=== PATIENT | female | born 1950 | race Caucasian/White ===

== ENCOUNTER 2018-04-20 07:54 | Outpatient (CLI) | payer BC | END 2018-04-20 07:55 | disposition home or self-care (01) | LOC: BICMAMMO 07:54 | PROVIDERS: ATTEND Internal Medicine | DX: Z12.31 Encounter for screening mammogram for malignant neoplasm of breast (principal); Z80.3 Family history of malignant neoplasm of breast | CPT/HCPCS: 77063; 77067 ==

== ENCOUNTER 2018-05-06 09:34 | Outpatient (CLI) | payer BC ==
[2018-05-06 10:52] LABS: #Eosinphils 0.2 thou/uL (0.0-0.7); #Lymphocytes 1.7 thou/uL (1.20-3.40); #Monocytes 0.5 thou/uL (0.11-0.59); #Neutrophils 3.5 thou/uL (1.40-6.50); %Basophils 0.8 % (0.0-1.0); %Eosinophils 2.6 % (0.0-10.0); %Lymphocytes 28.8 % (21.0-51.0); %Monocytes 9.1 % (0.0-10.0); %Neutrophils 58.7 % (42.0-75.0); Hemoglobin 13.9 g/dL (12.0-16.0); Mean Corpuscular HGB CONC 33.2 g/dL (32.0-36.0); Mean Corpuscular Hemoglobin 29.8 pg (27.0-31.0); Mean Corpuscular Volume 89.7 fL (78.0-98.0); Mean Platelet Volume 7.1 fL (7.4-10.4); Platelet Count 217 thou/uL (130-400); RBC Distribution Width 12.3 % (11.5-14.5); Red Blood Cell (RBC) Count 4.66 mill/uL (4.20-5.40); White Blood Cell (WBC) Count 5.9 thou/uL (4.8-10.8)
[2018-05-06 11:09] LABS: Anion Gap 14 mmol/L (10-20); BUN (Urea Nitrogen) 12 mg/dL (9.8-20.1); Calc. Creatinine Clearance 0 mL/min (70-130); Calcium 9.6 mg/dL (7.8-10.44); Carbon Dioxide 23 mmol/L (23-31); Chloride 103 mmol/L (98-107); Estimated GFR-MDRD 54; Glucose 349 mg/dL (80-115); Potassium 3.7 mmol/L (3.5-5.1); Sodium 136 mmol/L (136-145)
--- NOTE | 2018-05-07 13:57 | EKG ---
Test Reason : Blood Pressure : / mmHG Vent. Rate : 106 BPM Atrial Rate : 106 BPM P-R Int : 134 ms QRS Dur : 082 ms QT Int : 356 ms P-R-T Axes : 056 014 043 degrees QTc Int : 472 ms Sinus tachycardia Low voltage QRS Cannot rule out Anterior infarct (cited on or before 17-SEP-2010) Abnormal ECG Confirmed by BECCA BARNEY ([id number]) on 05/07/2018 1:56:57 PM Referred By: BHARAT Confirmed By:BECCA BARNEY
== END 2018-05-06 09:35 | disposition home or self-care (01) ==
LOC: LABBT 09:34
PROVIDERS: ATTEND Surgery
DX: Z01.818 Encounter for other preprocedural examination (principal); K43.2 Incisional hernia without obstruction or gangrene
CPT/HCPCS: 80048; 85025; 93005; 93010

== ENCOUNTER 2018-05-13 09:58 | Day surgery (SDC) | payer BC ==
[2018-05-06 09:49] VITALS: BMI 29.7
[2018-05-13] MEDS ORDERED: Bupivacaine/Epinephrine 0.25% 30 ML VIAL ONE (11:41)
[2018-05-13] MEDS ORDERED: Fentanyl 100 MCG/2 ML VIAL ONE ×3 (11:57→14:33)
[2018-05-13] MEDS ORDERED: Levofloxacin 500 mg/D5W 100 ml Premix Bag ONE (12:01)
--- NOTE | 2018-05-13 14:06 | OP ---
DATE OF PROCEDURE: 05/13/2018 PREOPERATIVE DIAGNOSIS: Incisional hernia. POSTOPERATIVE DIAGNOSES: Incisional hernia. PROCEDURE PERFORMED: Laparoscopic da Mariama robot incisional hernia repair with mesh, [address] SURGEON: Bhanu Goldstein M.D. ANESTHESIA: General. ESTIMATED BLOOD LOSS: Minimal. COMPLICATIONS: None. SPECIMEN: None. FINDINGS: Incisional hernia. TECHNIQUE: The patient was taken to the operating room and placed supine on the table. After genera l anesthetic was obtained, Hartley was placed. The abdomen was prepped and draped in a sterile fashion . Left subcostal Optiview 5 mm port was placed in the usual fashion without injury. High-flow pneum operitoneum was obtained. Left and right abdominal 8 mm robot trocars were placed. The 5 mm port wa s switched out to an 11 mm balloon applied medical trocar. All ports were docked to the robot. Surg randee goes to the console. The posterior defect was 4 cm. It was closed using 0 V-Loc suture, 8 cm ci rcular Ventralex ST Ventralight mesh was brought into the sterile field. The nonadherent underlay wa s left against the abdominal viscera. The exposed mesh side was placed up against the posterior fasc ia. A 2-0 V-Loc was used to sew the mesh circumferentially to the posterior fascia. All sutures rem leslie from the abdomen. All port sites were infiltrated using local anesthetic. All ports were remov ed under camera visualization. Pneumoperitoneum was let down, 4-0 Monocryl and Dermabond were used t o close all skin incisions. The patient went to recovery in stable condition. All sponge counts, ne edle counts, and lap counts were correct.
[2018-05-13] MEDS ORDERED: HYDROcodone/Acetaminophen 5/325 mg Tablet ONE (15:21)
[2018-05-13] MEDS ORDERED: Promethazine HCl 25 MG/ML VIAL ONE (15:34)
== END 2018-05-13 16:45 | disposition home or self-care (01) ==
LOC: SDC 09:58
PROVIDERS: ATTEND Surgery
PROC: 0WUF4JZ Supplement Abdominal Wall with Synthetic Substitute, Percutaneous Endoscopic Approach (ICD-10-PCS; principal; 2018-05-13)
PROC: 8E0W4CZ Robotic Assisted Procedure of Trunk Region, Percutaneous Endoscopic Approach (ICD-10-PCS; principal; 2018-05-13)
DX: K43.2 Incisional hernia without obstruction or gangrene (principal); E11.9 Type 2 diabetes mellitus without complications; E03.9 Hypothyroidism, unspecified; Z88.0 Allergy status to penicillin; Z98.890 Other specified postprocedural states; Z79.899 Other long term (current) drug therapy
CPT/HCPCS: 96374; 96375; C1781; J0131; J1956; J2550; J3010

== ENCOUNTER 2019-04-28 09:56 | Outpatient (CLI) | payer BC ==
--- NOTE | 2019-04-28 10:39 | MMO ---
Bilateral MAMMO Bilat Screen [facility]. CLINICAL HISTORY: Patient is 69 years old and is seen for screening. The patient has the following family history of breast cancer: mother. The patient has no personal history of cancer. VIEWS: The views performed were: bilateral craniocaudal with tomosynthesis and bilateral mediolateral oblique with tomosynthesis. FILMS COMPARED: The present examination has been compared to prior imaging studies performed at [facility] on 04/20/2018. MAMMOGRAM FINDINGS: There are scattered fibroglandular densities. There are stable benign appearing calcifications seen in both breasts. There are no suspicious masses, suspicious calcifications, or new areas of architectural distortion. IMPRESSION: THERE IS NO MAMMOGRAPHIC EVIDENCE OF MALIGNANCY. A ROUTINE FOLLOW-UP MAMMOGRAM IN 1 YEAR IS RECOMMENDED. THE RESULTS OF THIS EXAM WERE SENT TO THE PATIENT. ACR BI-RADS Category 2 - Benign finding MAMMOGRAPHY NOTE: 1. A negative mammogram report should not delay a biopsy if a dominant of clinically suspicious mass is present. 2. Approximately 10% to 15% of breast cancers are not detected by mammography. 3. Adenosis and dense breasts may obscure an underlying neoplasm.
== END 2019-04-28 09:57 | disposition home or self-care (01) ==
LOC: BICMAMMO 09:56
PROVIDERS: ATTEND Internal Medicine
DX: Z12.31 Encounter for screening mammogram for malignant neoplasm of breast (principal)
CPT/HCPCS: 77063; 77067

== ENCOUNTER 2020-03-10 08:19 | Outpatient (CLI) | payer BC ==
--- NOTE | 2020-03-10 09:05 | MMO ---
Bilateral MAMMO Bilat Diag [facility]. CLINICAL HISTORY: Patient is 69 years old and is seen for diagnostic exam and lump or thickening in the left breast. The patient has the following family history of breast cancer: mother, at age 84. The patient has no personal history of cancer. VIEWS: The views performed were: bilateral craniocaudal with tomosynthesis; bilateral mediolateral oblique with tomosynthesis; and bilateral mediolateral with tomosynthesis. FILMS COMPARED: The present examination has been compared to prior imaging studies performed at 04/28/2019 and 03/10/2020. This study has been interpreted with the assistance of computer-aided detection. MAMMOGRAM FINDINGS: The breasts are heterogeneously dense, which could obscure a lesion on mammography. Finding 1: There are stable benign appearing calcifications seen in both breasts. There are also vascular calcifications. Finding 2: There are no mammographic or sonographic abnormalities in the area of palpable concern. The patient is referred back to her clinician. Negative imaging findings should not preclude biopsy if clinical findings are suspicious. There are no suspicious masses, suspicious calcifications, or new areas of architectural distortion. IMPRESSION: FINDING 2: THERE ARE NO MAMMOGRAPHIC ABNORMALITIES IN THE AREA OF PALPABLE CONCERN. THE PATIENT IS REFERRED BACK TO HER CLINICIAN. NEGATIVE IMAGING FINDINGS SHOULD NOT PRECLUDE BIOPSY IF CLINICAL FINDINGS ARE SUSPICIOUS. THE RESULTS OF THIS EXAM WERE SENT TO THE PATIENT. ACR BI-RADS Category 2 - Benign finding MAMMOGRAPHY NOTE: 1. A negative mammogram report should not delay a biopsy if a dominant of clinically suspicious mass is present. 2. Approximately 10% to 15% of breast cancers are not detected by mammography. 3. Adenosis and dense breasts may obscure an underlying neoplasm. Reported by: FANTASMA LUNA MD Electonically Signed: [id number]
--- NOTE | 2020-03-10 09:06 | MMO ---
Left US Breast Limited Lt. CLINICAL HISTORY: Patient is 69 years old and is seen for . VIEWS: The views performed were: . FILMS COMPARED: The present examination has been compared to prior imaging studies performed at 04/28/2019 and 03/10/2020. This study has been interpreted with the assistance of computer-aided detection. LEFT BREAST ULTRASOUND FINDINGS: On ultrasound, no suspicious findings are identified. IMPRESSION: THERE ARE NO SONOGRAPHIC ABNORMALITIES IN THE AREA OF PALPABLE CONCERN. THE PATIENT IS REFERRED BACK TO HER CLINICIAN. NEGATIVE IMAGING FINDINGS SHOULD NOT PRECLUDE BIOPSY IF CLINICAL FINDINGS ARE SUSPICIOUS. THE RESULTS OF THIS EXAM WERE SENT TO THE PATIENT. ACR BI-RADS Category 1 - Negative MAMMOGRAPHY NOTE: 1. A negative mammogram report should not delay a biopsy if a dominant of clinically suspicious mass is present. 2. Approximately 10% to 15% of breast cancers are not detected by mammography. 3. Adenosis and dense breasts may obscure an underlying neoplasm. Reported by: FANTASMA LUNA MD Electonically Signed: [id number]
== END 2020-03-10 08:20 | disposition home or self-care (01) ==
LOC: BICMAMMO 08:19
PROVIDERS: ATTEND Student in an Organized Health Care Education/Training Program
DX: N63.20 Unspecified lump in the left breast, unspecified quadrant (principal)
CPT/HCPCS: 77066; G0279

== ENCOUNTER 2020-10-25 17:01 | Inpatient (IN) | payer BC ==
[~2020-10-25 17:01] MED LIST: Iopamidol-370 76% 500 ML 1 ML ONE
[2020-10-25] MEDS ORDERED: Morphine 4 MG/ML VIAL ONE (18:03)
[2020-10-25] MEDS ORDERED: Ondansetron PF 4 MG/2 ML Vial ONE (18:03)
[2020-10-25 18:14] LABS: #Lymphocytes 1.5 thou/uL (1.20-3.40); #Monocytes 0.9 thou/uL (0.11-0.59); %Basophils 0.2 % (0.0-1.0); %Eosinophils 0.1 % (0.0-10.0); %Lymphocytes 8.2 % (21.0-51.0); %Monocytes 4.9 % (0.0-10.0); %Neutrophils 86.6 % (42.0-75.0); Hemoglobin 15.5 g/dL (12.0-16.0); Mean Corpuscular HGB CONC 33.9 g/dL (32.0-36.0); Mean Corpuscular Hemoglobin 31.4 pg (27.0-31.0); Mean Corpuscular Volume 92.8 fL (78.0-98.0); Mean Platelet Volume 6.7 fL (7.4-10.4); Platelet Count 252 thou/uL (130-400); RBC Distribution Width 12.1 % (11.5-14.5); Red Blood Cell (RBC) Count 4.93 mill/uL (4.20-5.40); White Blood Cell (WBC) Count 18.5 thou/uL (4.8-10.8)
[2020-10-25] MEDS ORDERED: Promethazine HCl 25 MG/ML VIAL ONE (18:30)
[2020-10-25 18:37] LABS: ALT (SGPT) 17 U/L (8-55); AST (SGOT) 21 U/L (5-34); Albumin 4.4 g/dL (3.4-4.8); Alkaline Phosphatase 112 U/L (40-110); Anion Gap 28 mmol/L (10-20); BUN (Urea Nitrogen) 10 mg/dL (9.8-20.1); Bilirubin, Total 0.9 mg/dL (0.2-1.2); Calc. Creatinine Clearance 0 mL/min (70-130); Calcium 9.8 mg/dL (7.8-10.44); Carbon Dioxide 13 mmol/L (23-31); Chloride 100 mmol/L (98-107); Globulin 3.7 g/dL (2.4-3.5); Glucose 258 mg/dL (83-110); Lipase 22 U/L (8-78); Potassium 3.4 mmol/L (3.5-5.1); Protein, Total 8.1 g/dL (6.0-8.3); Sodium 138 mmol/L (136-145)
[2020-10-25 18:50] LABS: Bilirubin Negative (Negative); Blood, Urine Negative (Negative); Clarity Clear (Clear); Glucose, Urine (Dipstick) Greater than 1000 mg/dL (Negative); Ketone, Urine 80 mg/dL (Negative); Leukocyte Negative Leu/uL (Negative); Nitrite Negative (Negative); Protein, Urine (Dipstick) Negative (Neg-Trace); Specific Gravity, Urine 1.024 (1.002-1.036); Urobilinogen Normal mg/dL (Less than 2)
[2020-10-25 20:31] LABS: Actual Bicarbonate (HCO3a) 12.7 mEq/L (22-28); Analyzer IN Cardio ER; Base Excess (BEa) -15.3 mEq/L (-2.0 to +3.0); CO2 Tension 36.9 mmHg (35.0-45.0); Calcium, Ionized (arterial) 1.13 mmol/L (1.12-1.30); Carboxyhemoglobin (COHb) 1.2 gm% (0.0-3.0); Hemoglobin (Hb) 14.9 g/dL (12.0-16.0); O2 Tension (PaO2), arterial 64.7 mmHg (> 70.0); Potassium - ABG Lab 3.54 mmol/L (3.70-5.30)
[2020-10-25 20:32] LABS: Puncture Site RBA; pH, Arterial 7.15 (7.35-7.45)
--- NOTE | 2020-10-25 20:49 | CT ---
CT ABDOMEN AND PELVIS WITH IV CONTRAST: 10/25/20 PROVIDED CLINICAL HISTORY: Abdominal pain. COMPARISON: 05/14/17. The visualized lung bases are free of significant opacity. The liver, spleen, pancreas, kidneys and adrenal glands appear unremarkable. There is no bowel dilatation, inflammatory fat stranding, free fluid, or free air apparent. The appen maryellen appears normal. The gallbladder is surgically absent. Changes of prior gastric sleeve are redemon strated. Conspicuous sigmoid colonic diverticulosis without CT evidence for diverticulitis. The uterus is not visualized and presumed surgically absent. The regional major vascular structures appear unremarkable. The osseous structures demonstrate no concerning lytic or blastic lesions. Lumbar degenerative change s are seen. IMPRESSION: No evidence for an acute process. Chronic findings as above. POS: DEEP
[2020-10-25] MEDS ORDERED: INSULIN REGULAR IN 0.9 % NACL 100 UNIT/100 ML BAG ONE (21:18)
[2020-10-26 00:04] LABS: Lactic Acid 5.1 mmol/L (0.5-2.2)
[2020-10-26 00:48] LABS: ALT (SGPT) 16 U/L (8-55); AST (SGOT) 19 U/L (5-34); Albumin 3.6 g/dL (3.4-4.8); Alkaline Phosphatase 86 U/L (40-110); Anion Gap 17 mmol/L (10-20); BUN (Urea Nitrogen) 8 mg/dL (9.8-20.1); Bilirubin, Total 0.5 mg/dL (0.2-1.2); Calc. Creatinine Clearance 0 mL/min (70-130); Calcium 8.5 mg/dL (7.8-10.44); Carbon Dioxide 19 mmol/L (23-31); Chloride 105 mmol/L (98-107); Globulin 2.9 g/dL (2.4-3.5); Glucose 229 mg/dL (83-110); Potassium 4.7 mmol/L (3.5-5.1); Protein, Total 6.5 g/dL (6.0-8.3); Sodium 136 mmol/L (136-145)
[2020-10-26 01:30] LABS: Actual Bicarbonate (HCO3v) 17 mEq/L (22-28); Analyzer IN Cardio ER; Base Excess -5.7 mEq/L (-2.0 to +3.0); Calcium, Ionized (venous) 1.03 mmol/L (1.16-1.32); Chloride (VBG) 106 mmol/L (98-106); Hemoglobin (Hb) 13.6 g/dL (11.7-16.1); Potassium (VBG) 4.33 mmol/L (3.70-5.30); Sodium 132.7 mmol/L (133-146); pH (venous) 7.44 (7.32-7.43)
[2020-10-26 01:44] LABS: SARS-CoV-2 NAA Rapid Test Not Detected (NotDetected)
[2020-10-26] MEDS ORDERED: Acetaminophen 650 MG Suppository PR PRN (02:05)
[2020-10-26] MEDS ORDERED: Electrolyte Replacement Protocol 1 EACH IVPB PRN (02:05)
[2020-10-26] MEDS ORDERED: Dextrose 5 %-0.45 % NaCl 1,000 ML IV PRN (02:05)
[2020-10-26] MEDS ORDERED: Acetaminophen 325 MG TAB PO PRN (02:05)
[2020-10-26] MEDS ORDERED: Sodium Chloride 0.9% 1,000 ML IV PRN ×4 (02:05)
[2020-10-26] MEDS ORDERED: NS 0.9% w/ 20 MEQ KCL 1,000 ML IV PRN ×2 (02:05)
[2020-10-26] MEDS ORDERED: Calcium Carbonate 500 MG ChewTAB PO PRN (02:05)
--- NOTE | 2020-10-26 02:07 | PDOC.HHP ---
Hospitalist HPI - History of Present Illness abdominal pain History of Present Illness: Case of an 70y/o female with a pmhx of DM and hypothyroidism who comes to hospital due to abdominal pain nausea and vomiting. patient refers she was on her usual state of health until this morning when she started with symptoms after eating some ice cream. patient states through the day symptoms continued and worsen for which she decided to come to hospital for evaluation here she was diagnosed with DKA and hospitalist was called for further evaluation and management. Patient denies any recent fever, body aches or chills, She also denies cough congestion or changes in smell or taste. Patient denies recent ill contacts. reports compliance with diabetes medication Hospitalist ROS - Review of Systems All other systems reviewed; all pertinent +/- noted in HPI/Subj Hospitalist History - Past Surgical History Past Surgical History: reports: Cholecystectomy, Hysterectomy Other Surgical History: gastric sleeve - Family History Family History: reports: no pertinent history - Social History Smoking Status: Never smoker Alcohol: reports: None Drugs: reports: none - Exam General Appearance: NAD, awake alert Eye: PERRL, anicteric sclera ENT: normocephalic atraumatic, no oropharyngeal lesions Neck: supple, symmetric, no JVD, no thyromegaly Heart: RRR, no murmur, no gallops Respiratory: CTAB, no wheezes, no rales Gastrointestinal: soft, non-tender, non-distended Extremities: no cyanosis, no clubbing, no edema Skin: normal turgor, no lesions, no rashes Neurological: cranial nerve grossly intact, normal sensation to touch Musculoskeletal: normal tone, normal strength Psychiatric: normal affect, normal behavior, A&O x 3 Hospitalist Results - Labs Result Diagrams: 10/25/20 17:49 10/26/20 02:22 Lab results: WBC 18.5 thou/uL (4.8-10.8) H 10/25/20 17:49 Hgb 15.5 g/dL (12.0-16.0) 10/25/20 17:49 Hct 45.7 % (36.0-47.0) 10/25/20 17:49 MCV 92.8 fL (78.0-98.0) 10/25/20 17:49 Plt Count 252 thou/uL (130-400) 12/30/20 17:49 Neutrophils % 86.6 % (42.0-75.0) H 10/25/20 17:49 ABG pH 7.15 (7.35-7.45) L* 10/25/20 20:20 ABG pCO2 36.9 mmHg (35.0-45.0) 10/25/20 20:20 ABG pO2 64.7 mmHg (> 70.0) 10/25/20 20:20 VBG pH 7.44 (7.32-7.43) H 10/26/20 01:20 VBG pCO2 24.9 mmHg (42.0-51.0) L* 10/26/20 01:20 VBG pO2 183.3 mmHg (35.0-45.0) H 10/26/20 01:20 Sodium 136 mmol/L (136-145) 10/26/20 00:20 Potassium 4.7 mmol/L (3.5-5.1) 10/26/20 00:20 Chloride 105 mmol/L (98-107) 10/26/20 00:20 Carbon Dioxide 19 mmol/L (23-31) L 10/26/20 00:20 BUN 8 mg/dL (9.8-20.1) L 10/26/20 00:20 Creatinine 0.82 mg/dL (0.6-1.1) 10/26/20 00:20 Glucose 229 mg/dL (83-110) H 10/26/20 00:20 Lactic Acid 5.1 mmol/L (0.5-2.2) H* 10/25/20 23:33 Calcium 8.5 mg/dL (7.8-10.44) 10/26/20 00:20 Total Bilirubin 0.5 mg/dL (0.2-1.2) 10/26/20 00:20 AST 19 U/L (5-34) 10/26/20 00:20 ALT 16 U/L (8-55) 10/26/20 00:20 Alkaline Phosphatase 86 U/L (40-110) 10/26/20 00:20 Troponin I 0.011 ng/mL (< 0.028) 10/25/20 17:49 Serum Total Protein 6.5 g/dL (6.0-8.3) 10/26/20 00:20 Albumin 3.6 g/dL (3.4-4.8) 10/26/20 00:20 Lipase 22 U/L (8-78) 10/25/20 17:49 Urine Ketones 80 mg/dL (Negative) A 10/25/20 18:22 Urine Blood Negative (Negative) 10/25/20 18:22 Urine Nitrite Negative (Negative) 10/25/20 18:22 Ur Leukocyte Esterase Negative Edison/uL (Negative) 10/25/20 18:22 Hospitalist H&P A/P - Problem (1) DKA (diabetic ketoacidoses) Code(s): E11.10 - TYPE 2 DIABETES MELLITUS WITH KETOACIDOSIS WITHOUT COMA Status: Acute (2) Hypothyroidism Code(s): E03.9 - HYPOTHYROIDISM, UNSPECIFIED Status: Acute - Plan Plan: Case of an 70y/o female who present with DKA dka - blood sugar in the 300s, ph 7.1, elevated anion gap, ketones + urine - will start insulin drip protocol - monitor anion gap - monitor K levels, replace as needed - pain management - will order plasma osmolality to evaluate osmolal gap - npo - aggressive iv hydration hypothyroidism - continue home meds
[2020-10-26] MEDS: D5 1/2 NS w/20 mEq KCL 1,000 ML IV SCH ×7 (02:09→21:15)
[2020-10-26] MEDS ORDERED: HUMULIN R 100 UNITS in Sodium Chloride 0.9% 100 ML IVPB SCH (02:15)
[2020-10-26 02:37] VITALS: BMI 27.0
[2020-10-26 02:48] LABS: Anion Gap 15 mmol/L (10-20); BUN (Urea Nitrogen) 9 mg/dL (9.8-20.1); Calc. Creatinine Clearance 78 mL/min (70-130); Calcium 8.8 mg/dL (7.8-10.44); Carbon Dioxide 20 mmol/L (23-31); Chloride 106 mmol/L (98-107); Glucose 154 mg/dL (83-110); Potassium 4.2 mmol/L (3.5-5.1); Sodium 137 mmol/L (136-145)
[2020-10-26 05:10] LABS: Band 1 % (5-11); Hemoglobin 12.8 g/dL (12.0-16.0); Lymphocytes 8 % (21-51); MDiff Complete? YES; Mean Corpuscular HGB CONC 32.8 g/dL (32.0-36.0); Mean Corpuscular Hemoglobin 30.6 pg (27.0-31.0); Mean Corpuscular Volume 93.1 fL (78.0-98.0); Mean Platelet Volume 6.6 fL (7.4-10.4); Monocytes 2 % (0-10); Neutrophil 89 % (42-75); Platelet Count 221 thou/uL (130-400); Platelet Morphology Comment Appears Adequate; RBC Distribution Width 12.1 % (11.5-14.5); RBC Morphology Normal; Red Blood Cell (RBC) Count 4.18 mill/uL (4.20-5.40)
[2020-10-26] MEDS: D5 1/2 NS w/20 mEq KCL 1,000 ML IV PRN ×5 (06:00→22:19)
[2020-10-26 08:35] LABS: Anion Gap 12 mmol/L (10-20); BUN (Urea Nitrogen) 8 mg/dL (9.8-20.1); Calc. Creatinine Clearance 85 mL/min (70-130); Calcium 8.6 mg/dL (7.8-10.44); Carbon Dioxide 22 mmol/L (23-31); Chloride 109 mmol/L (98-107); Glucose 121 mg/dL (83-110); Potassium 4.3 mmol/L (3.5-5.1); Sodium 139 mmol/L (136-145)
[2020-10-26] MEDS: Famotidine/PF 20 mg/2ml Vial SLOW IVP SCH ×3 (09:12→18:06)
[2020-10-26] MEDS: Enoxaparin Sodium 40 MG/0.4 ML SYRINGE SC SCH (09:13)
[2020-10-26 11:03] LABS: Anion Gap 12 mmol/L (10-20); BUN (Urea Nitrogen) 8 mg/dL (9.8-20.1); Calc. Creatinine Clearance 88 mL/min (70-130); Calcium 8.6 mg/dL (7.8-10.44); Carbon Dioxide 23 mmol/L (23-31); Glucose 111 mg/dL (83-110); Potassium 4.3 mmol/L (3.5-5.1)
[2020-10-26 11:11] LABS: Chloride 109 mmol/L (98-107); Sodium 140 mmol/L (136-145)
[2020-10-26] MEDS ORDERED: Dextrose 5% in Water 1,000 ML IV PRN (12:30)
[2020-10-26] MEDS ORDERED: Insulin Regular 300 UNITS/3 ML VIAL SC PRN (12:30)
[2020-10-26] MEDS ORDERED: Dextrose 50% Abboject 50 ML SYRINGE IVP PRN (12:30)
--- NOTE | 2020-10-26 14:03 | PDOC.DS.DS ---
Provider - Provider Date of Admission: 10/26/20 00:50 Admitting Provider: Ti Rodriguez Primary Care Physician: Mayra Gramajo MD Course - Hospital Course Hospital Course: 70-year-old female presented with (1) DKA (diabetic ketoacidoses) Code(s): E11.10 - TYPE 2 DIABETES MELLITUS WITH KETOACIDOSIS WITHOUT COMA Status: Acute (2) Hypothyroidism Code(s): E03.9 - HYPOTHYROIDISM, UNSPECIFIED Status: Acute Her electrolyte panel are in the normal range this morning. Anion gap closed. Patient is quite anxious to go home. She does not want to stay in the hospital concerning for Covid. She has no nausea. Will try p.o. intake along with the scheduled insulin. If she is stable later this afternoon, patient would be discharged home. Her spouse has to drive 50miles from home to give her a ride back. Covid negative Follow-up with the PCP in 1 week. Resuscitation Status: 10/26/20 02:05 Resuscitation Status Routine Resuscitation Status: FULL: Full Resuscitation - Labs Lab Results: 10/26/20 03:54 10/26/20 10:33 Abnormal Lab Results - Last 48 hrs 10/25/20 17:49: Potassium 3.4 L, Carbon Dioxide 13 L, Anion Gap 28 H, Alkaline Phosphatase 112 H, Globulin 3.7 H 10/25/20 17:49: WBC 18.5 H, MCH 31.4 H, MPV 6.7 L, Neutrophils % 86.6 H, Lymphocytes % 8.2 L, Neutrophils # 16.0 H, Monocytes # 0.9 H 10/25/20 17:49: B-Hydroxybutyrate 1.88 H 10/25/20 18:22: Urine Glucose (UA) Greater than 1000 A, Urine Ketones 80 A 10/25/20 20:20: Bicarbonate Actual 12.7 L, ABG pH 7.15 L*, ABG O2 Sat (Measured) 87.7 L, ABG Base Excess -15.3 L, ABG Oxyhemoglobin 86.1 L, ABG Deoxyhemoglobin 12.1 H, Potassium 3.54 L 10/25/20 20:41: Lactic Acid 6.6 H* 10/25/20 23:33: Lactic Acid 5.1 H* 10/26/20 00:20: Carbon Dioxide 19 L, BUN 8 L 10/26/20 01:20: VBG pH 7.44 H, VBG pCO2 24.9 L*, VBG pO2 183.3 H, VBG HCO3 17 L, VBG O2 Sat (Compa) 98.8 H, VBG Base Excess -5.7 L, VBG Carboxyhemoglobin 2.1 H, Whole Bld Sodium 132.7 L 10/26/20 02:22: Carbon Dioxide 20 L, BUN 9 L 10/26/20 03:54: WBC 14.0 H, RBC 4.18 L, MPV 6.6 L, Neutrophils % (Manual) 89 H, Band Neuts % (Manual) 1 L, Lymphocytes % (Manual) 8 L 10/26/20 07:51: Chloride 109 H, Carbon Dioxide 22 L, BUN 8 L 10/26/20 10:33: Chloride 109 H, BUN 8 L Microbiology - Entire Visit 10/25/20 20:55 Urine clean catch Urine Culture - Preliminary NO GROWTH AT 12 HOURS - Physical Exam Vitals: Vital Signs (12 hours) Temp Pulse Ox 10/26/20 11:17 98.1 F 10/26/20 08:00 100 10/26/20 07:19 98.0 F 10/26/20 03:36 99.4 F 10/26/20 02:09 97.6 F 10/26/20 02:05 100 Weight Admit Weight 157 lb 5 oz Weight 157 lb 5 oz Most Recent Monitor Data Heart Rate from ECG 79 NIBP 174/88 NIBP BP-Mean 116 Respiration from ECG 17 SpO2 96 Physical Exam: The patient was seen and examined on the day of discharge. Her anion gap is closed this morning. Her electrolyte panel are in the normal range. Patient is quite anxious to go home. She does not want to stay in the hospital concerning for Covid. She has no nausea. Will try p.o. intake along with the scheduled insulin. If she is stable later this afternoon patient would be discharged home. Her spouse has to drive 50miles from home to give her a ride back. Plan - Discharge Medications Home Medications: Medication Instructions Recorded Confirmed Type LORazepam [Lorazepam] 1 tab PO DAILY 05/06/18 10/26/20 History Thyroid,Pork [Olmitz Thyroid] 1 tab PO DAILY 05/06/18 10/26/20 History Citalopram [CeleXA] 10 mg PO DAILY 10/26/20 10/26/20 History Dapagliflozin Propanediol [Farxiga] 10 mg PO DAILY 10/26/20 10/26/20 History Esomeprazole Magnesium [NexIUM] 1 cap PO DAILY 10/26/20 10/26/20 History Estradiol [Estrace] 4.25 gm VG ASDIR 10/26/20 10/26/20 History Semaglutide [Ozempic] 1.5 ml SC Q7DAYS 10/26/20 10/26/20 History Allergies: Penicillins Allergy (Verified 10/26/20 02:26) Rash and blisters - Discharge Instructions Discharge Instructions:: PCP follow-up in 1 week Activity:: Activity as Tolerated Nourishment:: Diabetic Diet - Follow up Plan Referrals: Mayra Gramajo MD [Primary Care Provider] - Disposition: HOME Quality - Care Measures CORE MEASURES:: N/A
[2020-10-26] MEDS: Ondansetron PF 4 MG/2 ML Vial IVP PRN ×2 (14:53→20:52)
--- NOTE | 2020-10-26 15:56 | PDOC.HOSPP ---
- Subjective Encounter Date: 10/26/20 Encounter Time: 16:00 Subjective: pl see my dc summary pt had episode of nausea., plan changed from going home to stay - Objective Vital Signs & Weight: Vital Signs (12 hours) Temp Pulse Ox 10/26/20 15:15 99.0 F 10/26/20 11:17 98.1 F 10/26/20 08:00 100 10/26/20 07:19 98.0 F Weight Admit Weight 157 lb 5 oz Weight 157 lb 5 oz Most Recent Monitor Data Heart Rate from ECG 94 NIBP 164/87 NIBP BP-Mean 112 Respiration from ECG 18 SpO2 98 I&O: 10/25/20 10/26/20 10/27/20 06:59 06:59 06:59 Intake Total 1015.0 2656.0 Output Total 460 1500 Balance 555.0 1156.0 Result Diagrams: 10/26/20 03:54 10/26/20 10:33 Additional Labs: Accuchecks 10/26/20 10/26/20 10/26/20 14:59 13:02 12:19 POC Glucose 158 H 117 H 132 H 10/26/20 10/26/20 10/26/20 11:07 10:07 09:07 POC Glucose 101 H 105 H 90 10/26/20 10/26/20 10/26/20 08:01 07:08 06:02 POC Glucose 104 H 137 H 132 H 10/26/20 10/26/20 10/26/20 05:04 03:53 02:09 POC Glucose 129 H 128 H 155 H 10/26/20 10/25/20 10/25/20 00:19 23:10 22:03 POC Glucose 225 H 228 H 208 H 10/25/20 20:49 POC Glucose 193 H Hospitalist ROS - Medication Medications: Active Medications Generic Name Dose Route Start Last Admin Trade Name Freq PRN Reason Stop Dose Admin Enoxaparin Sodium 40 mg 10/26/20 09:00 10/26/20 09:13 Enoxaparin Sodium 40 Mg/0.4 Ml Syringe SC 40 mg 0900 MAR Administration Famotidine 20 mg 10/26/20 09:00 10/26/20 09:12 Famotidine/Pf 20 Mg/2ml Vial SLOW IVP 20 mg Q12HR MAR Administration Potassium Chloride/Dextrose/Sod Cl 1,000 mls @ 250 mls/hr 10/25/20 21:15 10/26/20 13:36 D5 1/2 Ns W/20 Meq Kcl IV Not Given .Q4H MAR Potassium Chloride/Dextrose/Sod Cl 1,000 mls @ 250 mls/hr 10/26/20 02:05 10/26/20 14:53 D5 1/2 Ns W/20 Meq Kcl IV 1,000 mls .Q4H PRN Administration Step 4 of DKA Protocol Protocol Ondansetron HCl 4 mg 10/26/20 02:05 10/26/20 14:53 Ondansetron Pf 4 Mg/2 Ml Vial IVP 4 mg Q6H PRN Administration Nausea/Vomiting - Exam General Appearance: NAD Eye: PERRL, anicteric sclera ENT: normocephalic atraumatic Neck: supple Heart: RRR Respiratory: CTAB Gastrointestinal: soft, normal bowel sounds Hosp A/P - Plan pl see my dc summary pt had episode of nausea., plan changed from going home to stay
[2020-10-26 16:05] LABS: Anion Gap 15 mmol/L (10-20); BUN (Urea Nitrogen) 7 mg/dL (9.8-20.1); Calc. Creatinine Clearance 78 mL/min (70-130); Calcium 9.2 mg/dL (7.8-10.44); Carbon Dioxide 22 mmol/L (23-31); Chloride 106 mmol/L (98-107); Glucose 147 mg/dL (83-110); Potassium 3.5 mmol/L (3.5-5.1); Sodium 139 mmol/L (136-145)
[2020-10-26] MEDS: Ondansetron ODT 4 MG TAB PO PRN (16:11)
[2020-10-26] MEDS: Promethazine HCl 25 MG/ML VIAL SLOW IVP PRN (17:28)
--- NOTE | 2020-10-26 17:43 | RAD ---
EXAM: CHEST ONE VIEW HISTORY: Abdominal cramping and nausea. Covid like symptoms. COMPARISON: 11/05/2018 FINDINGS: The cardiac silhouette and pulmonary vasculature are within normal limits. There is increased density at the lateral left lung base likely related to epicardial fat pad which is seen on CT abdomen on 10/25/2020. No consolidation or pleural effusion is evident. Chest is overall stable compared to prio r exam. IMPRESSION: No acute cardiopulmonary process. Chest radiographs exhibit low sensitivity for subtle groundglass op acities which can be seen with Covid pneumonia.
[2020-10-27] MEDS: D5 1/2 NS w/20 mEq KCL 1,000 ML IV SCH ×4 (02:27→17:41)
[2020-10-27] MEDS: Promethazine HCl 25 MG/ML VIAL SLOW IVP PRN ×2 (02:37→08:11)
[2020-10-27] MEDS: D5 1/2 NS w/20 mEq KCL 1,000 ML IV PRN ×2 (02:37→08:03)
[2020-10-27 04:16] LABS: #Lymphocytes 2.1 thou/uL (1.20-3.40); #Monocytes 1.2 thou/uL (0.11-0.59); #Neutrophils 10.1 thou/uL (1.40-6.50); %Basophils 0.3 % (0.0-1.0); %Eosinophils 0.2 % (0.0-10.0); %Lymphocytes 15.4 % (21.0-51.0); %Monocytes 8.6 % (0.0-10.0); %Neutrophils 75.4 % (42.0-75.0); Hemoglobin 14.5 g/dL (12.0-16.0); Mean Corpuscular Hemoglobin 30.7 pg (27.0-31.0); Mean Corpuscular Volume 92.9 fL (78.0-98.0); Mean Platelet Volume 6.3 fL (7.4-10.4); Platelet Count 227 thou/uL (130-400); RBC Distribution Width 11.9 % (11.5-14.5); Red Blood Cell (RBC) Count 4.73 mill/uL (4.20-5.40); White Blood Cell (WBC) Count 13.3 thou/uL (4.8-10.8)
[2020-10-27 04:35] LABS: Anion Gap 17 mmol/L (10-20); BUN (Urea Nitrogen) 4 mg/dL (9.8-20.1); Calc. Creatinine Clearance 85 mL/min (70-130); Calcium 9.1 mg/dL (7.8-10.44); Carbon Dioxide 21 mmol/L (23-31); Chloride 99 mmol/L (98-107); Glucose 154 mg/dL (83-110); Potassium 3.9 mmol/L (3.5-5.1); Sodium 133 mmol/L (136-145)
[2020-10-27] MEDS: Ondansetron PF 4 MG/2 ML Vial IVP PRN (05:30)
[2020-10-27] MEDS: Famotidine/PF 20 mg/2ml Vial SLOW IVP SCH ×2 (05:30→17:47)
[2020-10-27] MEDS: Lorazepam 1 MG TAB PO SCH (08:02)
[2020-10-27] MEDS: Enoxaparin Sodium 40 MG/0.4 ML SYRINGE SC SCH (08:03)
[2020-10-27] MEDS: Ondansetron ODT 4 MG TAB PO PRN (08:19)
[2020-10-27] MEDS ORDERED: Non-Formulary Item 1 EACH (Dapagliflozin Propanediol [Farxiga] 10 MG Tablet) PO SCH (09:00)
[2020-10-27] MEDS ORDERED: THYROID PORK PO SCH (09:00)
[2020-10-27] MEDS ORDERED: Non-Formulary Item 1 EACH (Esomeprazole Magnesium [Nexium] 20 MG Capsule.Dr) PO SCH (09:00)
[2020-10-27] MEDS ORDERED: Lorazepam 1 MG TAB PO SCH (09:00)
[2020-10-27 12:16] LABS: Hemoglobin A1c 6.3 % (4.0-6.0)
[2020-10-27] MEDS ORDERED: cefTRIAXone\\ROCEPHIN 1 GM in Sodium Chloride 0.9% 100 ML IVPB SCH (14:00)
--- NOTE | 2020-10-27 15:03 | PDOC.HOSPP ---
- Subjective Subjective: Patient is still nauseated but much better than yesterday afternoon. Her white count is trending down. Insulin drip at 2 units an hour. - Objective Vital Signs & Weight: Vital Signs (12 hours) Temp Pulse Ox 10/27/20 11:08 98.7 F 10/27/20 07:37 95 10/27/20 07:29 98.4 F 10/27/20 04:00 99 F Weight Admit Weight 157 lb 5 oz Weight 157 lb 5 oz Most Recent Monitor Data Heart Rate from ECG 103 NIBP 156/101 NIBP BP-Mean 119 Respiration from ECG 19 SpO2 91 I&O: 10/26/20 10/27/20 10/28/20 06:59 06:59 06:59 Intake Total 1015.0 6443.5 1762 Output Total 460 7700 Balance 555.0 -1256.5 1762 Result Diagrams: 10/27/20 04:00 10/27/20 04:00 Additional Labs: Accuchecks 10/27/20 10/27/20 10/27/20 11:34 10:41 09:29 POC Glucose 120 H 161 H 146 H 10/27/20 10/27/20 10/27/20 08:29 06:04 05:01 POC Glucose 135 H 137 H 127 H 10/27/20 10/27/20 10/27/20 03:01 02:13 01:11 POC Glucose 157 H 158 H 162 H 10/27/20 10/26/20 10/26/20 00:09 20:57 18:21 POC Glucose 146 H 143 H 205 H 10/26/20 10/26/20 10/26/20 17:23 16:19 14:59 POC Glucose 188 H 179 H 158 H Hospitalist ROS - Medication Medications: Active Medications Generic Name Dose Route Start Last Admin Trade Name Freq PRN Reason Stop Dose Admin Calcium Carbonate 1,000 mg 10/26/20 02:05 10/26/20 16:49 Calcium Carbonate 500 Mg Chewtab PO 1,000 mg Q4H PRN Administration Heartburn or Indigestion Enoxaparin Sodium 40 mg 10/26/20 09:00 10/27/20 08:03 Enoxaparin Sodium 40 Mg/0.4 Ml Syringe SC 40 mg 0900 MAR Administration Famotidine 20 mg 10/26/20 18:00 10/27/20 05:30 Famotidine/Pf 20 Mg/2ml Vial SLOW IVP 20 mg 0600,1800 MAR Administration Potassium Chloride/Dextrose/Sod Cl 1,000 mls @ 250 mls/hr 10/25/20 21:15 10/27/20 07:51 D5 1/2 Ns W/20 Meq Kcl IV Not Given .Q4H MAR Potassium Chloride/Dextrose/Sod Cl 1,000 mls @ 250 mls/hr 10/26/20 02:05 10/27/20 08:03 D5 1/2 Ns W/20 Meq Kcl IV 1,000 mls .Q4H PRN Administration Step 4 of DKA Protocol Protocol Lorazepam 1 mg 10/27/20 09:00 10/27/20 08:02 Lorazepam 1 Mg Tab PO 1 mg DAILY MAR Administration Ondansetron HCl 4 mg 10/26/20 02:05 10/27/20 08:19 Ondansetron Odt 4 Mg Tab PO 4 mg Q6H PRN Administration Nausea/Vomiting Ondansetron HCl 4 mg 10/26/20 02:05 10/27/20 05:30 Ondansetron Pf 4 Mg/2 Ml Vial IVP 4 mg Q6H PRN Administration Nausea/Vomiting Promethazine HCl 12.5 mg 10/26/20 16:40 10/27/20 08:11 Promethazine Hcl 25 Mg/Ml Vial SLOW IVP 12.5 mg Q6H PRN Administration Nausea/Vomiting - Exam General Appearance: NAD, awake alert Eye: PERRL ENT: normocephalic atraumatic Neck: supple Heart: RRR, normal peripheral pulses Respiratory: CTAB, normal chest expansion Gastrointestinal: soft, normal bowel sounds Psychiatric: normal affect, normal behavior, A&O x 3 Hosp A/P - Plan 70-year-old female presented with (1) DKA (diabetic ketoacidoses) Code(s): E11.10 - TYPE 2 DIABETES MELLITUS WITH KETOACIDOSIS WITHOUT COMA Status: Acute Diabetes mellitus A1c 6.3 (2) Hypothyroidism Code(s): E03.9 - HYPOTHYROIDISM, UNSPECIFIED Status: Acute Her electrolyte panel are in the normal range this morning. Anion gap closed. Will wean off her insulin drip as anion gap closed. I am going to schedule her low-dose twice a day insulin until she is able to tolerate her p.o. intake. Will start her on a clear liquid diet this evening. Suspected leaky gut syndrome patient has history of gastric sleeve. Followed with the Dr. Hernandez. Once she is improved and if needed we can consult to Dr. Hernandez or she can follow- up in the outpatient setting.
[2020-10-27] MEDS: Citalopram 10 MG TAB PO SCH (17:40)
[2020-10-27] MEDS: Empagliflozin 25 MG TAB PO SCH (17:40)
[2020-10-27] MEDS: Thyroid 60 MG TAB PO SCH (17:41)
[2020-10-27] MEDS ORDERED: HumuLIN 70/30 (300 UNITS/3 ML VIAL) SC SCH (19:00)
[2020-10-28 04:49] LABS: #Eosinphils 0.1 thou/uL (0.0-0.7); #Lymphocytes 2.2 thou/uL (1.20-3.40); #Monocytes 1.3 thou/uL (0.11-0.59); #Neutrophils 6.9 thou/uL (1.40-6.50); %Basophils 0.4 % (0.0-1.0); %Eosinophils 0.7 % (0.0-10.0); %Lymphocytes 21.1 % (21.0-51.0); %Monocytes 12.1 % (0.0-10.0); %Neutrophils 65.8 % (42.0-75.0); Hemoglobin 16.1 g/dL (12.0-16.0); Mean Corpuscular HGB CONC 33.2 g/dL (32.0-36.0); Mean Corpuscular Volume 93.4 fL (78.0-98.0); Platelet Count 204 thou/uL (130-400); RBC Distribution Width 12.1 % (11.5-14.5); Red Blood Cell (RBC) Count 5.18 mill/uL (4.20-5.40); White Blood Cell (WBC) Count 10.4 thou/uL (4.8-10.8)
[2020-10-28 05:06] LABS: Anion Gap 16 mmol/L (10-20); BUN (Urea Nitrogen) 7 mg/dL (9.8-20.1); Calc. Creatinine Clearance 79 mL/min (70-130); Calcium 9.4 mg/dL (7.8-10.44); Carbon Dioxide 19 mmol/L (23-31); Chloride 103 mmol/L (98-107); Glucose 123 mg/dL (83-110); Potassium 4.3 mmol/L (3.5-5.1); Sodium 134 mmol/L (136-145)
[2020-10-28] MEDS: Famotidine/PF 20 mg/2ml Vial SLOW IVP SCH (06:50)
[2020-10-28] MEDS ORDERED: HumuLIN 70/30 (300 UNITS/3 ML VIAL) SC SCH (09:00)
[2020-10-28] MEDS: Enoxaparin Sodium 40 MG/0.4 ML SYRINGE SC SCH (09:32)
[2020-10-28] MEDS: Lorazepam 1 MG TAB PO SCH (09:33)
[2020-10-28] MEDS: Thyroid 60 MG TAB PO SCH (09:34)
[2020-10-28] MEDS: Citalopram 10 MG TAB PO SCH (09:34)
[2020-10-28] MEDS: Ondansetron PF 4 MG/2 ML Vial IVP PRN ×2 (09:36→15:35)
[2020-10-28] MEDS: Empagliflozin 25 MG TAB PO SCH (09:39)
[2020-10-28 11:27] VITALS: TEMP 97.9
--- NOTE | 2020-10-28 15:12 | EKG ---
Test Reason : Blood Pressure : / mmHG Vent. Rate : 123 BPM Atrial Rate : 123 BPM P-R Int : 148 ms QRS Dur : 084 ms QT Int : 316 ms P-R-T Axes : 054 -12 049 degrees QTc Int : 452 ms Sinus tachycardia Septal infarct , age undetermined Abnormal ECG Confirmed by ÁNGELA RESENDIZ DO ([id number]), newspaper photo editor KARLEY BANKS ([id number]) on 10/28/2020 3:12:29 PM Referred By: Confirmed By:ÁNGELA RESENDIZ DO
--- NOTE | 2020-10-28 17:00 | PDOC.DS.DS ---
Provider - Provider Date of Admission: 10/26/20 00:50 Date of Discharge: 10/28/20 Admitting Provider: Ti Rodriguez Consultations: None Primary Care Physician: Mayra Gramajo MD Course - Hospital Course Hospital Course: Patient is 70-year-old female with diabetes mellitus type 2 presented to the hospital with nausea and abdominal pain on 10/26. Her work-up was consistent with diabetic ketoacidosis with a pH of 7.15 bicarbonate of 12.5 and beta hydroxybutyrate of 1.8. She also had significant dehydration with elevated lactate of 6.6. Please refer to the history and physical for further details. The patient was admitted to the [facility] with diabetic ketoacidosis. She was started on insulin drip along with IV fluids per DKA protocol. CT scan of the abdomen and pelvis was negative for acute findings. Later on insulin drip was transitioned to subacute insulin. Anion gap is closed. Hemoglobin A1c was 6.3. Nausea and abdominal pain is resolved. She is tolerating full liquid and was transitioned to diabetic diet. Patient had significant leukocytosis of 18.5 with 86.6% neutrophils on admission. CT abdomen and pelvis did not show any infiltrate in the lung. Patient had a chest x-ray on 10/26 that showed questionable pneumonia. She was started on ceftriaxone and Levaquin on 10/27. I assumed the care of this patient on the day of discharge. Will change antibiotic to Levaquin. WBC counts is 10.4 with 65.8% neutrophil. She appears stable for discharge. Final diagnosis: Diabetic ketoacidosis Dehydration with lactic acidosis Suspected sepsis due to pneumonia questionable gram-negativePOA Hypothyroidism Hyponatremia Hypokalemia Anion gap metabolic acidosis due to DKA Resuscitation Status: 10/26/20 02:05 Resuscitation Status Routine Resuscitation Status: FULL: Full Resuscitation - Labs Lab Results: 10/28/20 03:39 10/28/20 03:39 Abnormal Lab Results - Last 48 hrs 10/27/20 04:00: Sodium 133 L, Carbon Dioxide 21 L, BUN 4 L 10/27/20 04:00: WBC 13.3 H, MPV 6.3 L, Neutrophils % 75.4 H, Lymphocytes % 15.4 L, Neutrophils # 10.1 H, Monocytes # 1.2 H 10/27/20 04:00: Hemoglobin A1c 6.3 H 10/28/20 03:39: Sodium 134 L, Carbon Dioxide 19 L, BUN 7 L 10/28/20 03:39: Hgb 16.1 H, Hct 48.4 H, MPV 7.0 L, Monocytes % 12.1 H, Neutroph ils # 6.9 H, Monocytes # 1.3 H Laboratory Tests 10/25/20 10/25/20 10/25/20 17:49 20:20 20:41 Bicarbonate Actual 12.7 L ABG pH 7.15 L* Potassium 3.4 L Hemoglobin A1c Lactic Acid 6.6 H* 10/27/20 04:00 Bicarbonate Actual ABG pH Potassium Hemoglobin A1c 6.3 H Lactic Acid Microbiology - Entire Visit 10/25/20 20:41 Venous blood - Right Arm Blood Culture - Preliminary NO GROWTH AT 48 HOURS 10/25/20 20:42 Venous blood - Right Hand Blood Culture - Preliminary NO GROWTH AT 48 HOURS 10/25/20 20:55 Urine clean catch Urine Culture - Final - Physical Exam Vitals: Vital Signs (12 hours) Temp Pulse Ox 10/28/20 11:26 97.9 F 10/28/20 08:00 99 10/28/20 07:10 98.3 F Weight Admit Weight 157 lb 5 oz Weight 157 lb 5 oz Most Recent Monitor Data Heart Rate from ECG 96 NIBP 124/85 NIBP BP-Mean 98 Respiration from ECG 20 SpO2 91 Physical Exam: The patient was seen and examined on the day of discharge. Plan - Discharge Medications Prescriptions: Doxycycline Hyclate 100 mg PO BID #10 capsule Home Medications: Medication Instructions Recorded Confirmed Type LORazepam [Lorazepam] 1 tab PO DAILY 05/06/18 10/26/20 History Thyroid,Pork [[place] Thyroid] 1 tab PO DAILY 05/06/18 10/26/20 History Citalopram [CeleXA] 10 mg PO DAILY 10/26/20 10/26/20 History Dapagliflozin Propanediol [Farxiga] 10 mg PO DAILY 10/26/20 10/26/20 History Esomeprazole Magnesium [NexIUM] 1 cap PO DAILY 10/26/20 10/26/20 History Estradiol [Estrace] 4.25 gm VG ASDIR 10/26/20 10/26/20 History Semaglutide [Ozempic] 1.5 ml SC Q7DAYS 10/26/20 10/26/20 History Doxycycline Hyclate 100 mg PO BID #10 capsule 10/28/20 Rx Allergies: Penicillins Allergy (Verified 10/26/20 02:26) Rash and blisters - Discharge Instructions Discharge Instructions:: PCP follow-up in 1 week Activity:: Activity as Tolerated Nourishment:: Diabetic Diet - Follow up Plan Referrals: Elian Clark MD [Active] - Steven Calvo MD [Active] - Mayra Gramajo MD [Primary Care Provider] - 7 Days Disposition: HOME Quality - Care Measures CORE MEASURES:: N/A
== END 2020-10-28 16:06 | disposition home or self-care (01) | DRG 871 ==
LOC: ERS 17:01 → IMCU/EMU 10-26 00:50
PROVIDERS: ADMIT Internal Medicine; ATTEND Internal Medicine
DX: A41.50 Gram-negative sepsis, unspecified (principal); E11.10 Type 2 diabetes mellitus with ketoacidosis without coma; J15.6 Pneumonia due to other Gram-negative bacteria; E87.1 Hypo-osmolality and hyponatremia; Z20.822 Contact with and (suspected) exposure to COVID-19; E86.0 Dehydration; E03.9 Hypothyroidism, unspecified; E87.6 Hypokalemia; K21.9 Gastro-esophageal reflux disease without esophagitis; F41.9 Anxiety disorder, unspecified; F32.9 Major depressive disorder, single episode, unspecified; Z90.49 Acquired absence of other specified parts of digestive tract; Z90.710 Acquired absence of both cervix and uterus; Z79.899 Other long term (current) drug therapy; Z79.84 Long term (current) use of oral hypoglycemic drugs
CPT/HCPCS: 0240U; 36415; 36416; 36600; 71045; 74177; 80048; 80053; 81003; 82010; 82805; 83036; 83605; 83690; 83930; 84484; 85007; 85025; 85027; 87040; 87086; 93005; 96365; 96366; 96375; J0696; J1650; J1815; J1956; J2270; J2405; J2550; J3480; J3490; Q0162; Q9967; S0028

== ENCOUNTER 2022-04-09 08:50 | Outpatient (CLI) | payer BC ==
[2022-04-09] MEDS ORDERED: Iopamidol 370 76% 100 ML VIAL ONE (09:23)
[2022-04-09 10:04] LABS: Estimated GFR-MDRD - POC Greater than 90
== END 2022-04-09 08:51 | disposition home or self-care (01) ==
LOC: CT 08:50
PROVIDERS: ATTEND Family Medicine
DX: R10.13 Epigastric pain (principal); K57.30 Diverticulosis of large intestine without perforation or abscess without bleeding; Z90.49 Acquired absence of other specified parts of digestive tract
CPT/HCPCS: 74160; 82565; Q9967

== ENCOUNTER 2022-12-17 08:47 | Outpatient (CLI) | payer BC | END 2022-12-17 08:48 | disposition home or self-care (01) | LOC: BICMAMMO 08:47 | PROVIDERS: ATTEND Family Medicine | DX: Z12.31 Encounter for screening mammogram for malignant neoplasm of breast (principal); R92.1 Mammographic calcification found on diagnostic imaging of breast; Z80.3 Family history of malignant neoplasm of breast | CPT/HCPCS: 77063; 77067 ==

== ENCOUNTER 2023-01-22 09:45 | Outpatient (CLI) | payer BC | END 2023-01-22 09:46 | disposition home or self-care (01) | LOC: BICRAD 09:45 | PROVIDERS: ATTEND Physician Assistant Medical | DX: K59.00 Constipation, unspecified (principal) | CPT/HCPCS: 74018 ==

== ENCOUNTER 2023-02-06 10:15 | Outpatient (CLI) | payer BC | END 2023-02-06 10:16 | disposition home or self-care (01) | LOC: BICRAD 10:15 | PROVIDERS: ATTEND Family Medicine | DX: R05.1 Acute cough (principal) | CPT/HCPCS: 71046 ==

== ENCOUNTER 2024-04-27 09:51 | Outpatient (CLI) | payer BC | END 2024-04-27 09:52 | disposition home or self-care (01) | LOC: BICCT 09:51 | PROVIDERS: ATTEND Family Medicine | DX: R82.998 Other abnormal findings in urine (principal); K57.30 Diverticulosis of large intestine without perforation or abscess without bleeding; K63.89 Other specified diseases of intestine | CPT/HCPCS: 74176 ==

== ENCOUNTER 2025-04-27 11:09 | Outpatient (CLI) | payer BC | END 2025-04-27 11:10 | disposition home or self-care (01) | LOC: BICRAD 11:09 | PROVIDERS: ATTEND Family Medicine | DX: R09.89 Other specified symptoms and signs involving the circulatory and respiratory systems (principal) | CPT/HCPCS: 71046 ==